=== PATIENT | male | born 1980 | race Caucasian/White ===

== ENCOUNTER 2017-03-29 00:44 | Emergency (ER) | payer OTHER ==
[~2017-03-29] VITALS: Ht 180.3 cm; Wt 90.7 kg
[2017-03-29] MEDS ORDERED: LACTATED RINGERS 1,000 ML IV ONE ×2 (00:55→01:56)
[2017-03-29] MEDS ORDERED: ONDANSETRON 4 MG/2 ML (SDV) Z0FRAN IVP ONE (01:00)
[2017-03-29 01:10] LABS: BASOPHILS # (AUTO) 0.1 10^3/uL (0.0-0.1); BASOPHILS % (AUTO) 0 % (0-10); EOSINOPHILS # (AUTO) 0.3 10^3/uL (0.0-0.3); EOSINOPHILS % (AUTO) 2 % (0-10); LYMPHOCYTES # (AUTO) 3.3 X 10^3 (1.0-4.0); LYMPHOCYTES % (AUTO) 25 % (12-44); MEAN CORPUSCULAR HEMOGLOBIN 32 PG (25-34); MEAN CORPUSCULAR HGB CONC 35 G/DL (32-36); MEAN CORPUSCULAR VOLUME 90 FL (80-99); MEAN PLATELET VOLUME 9.4 FL (7.4-10.4); MONOCYTES # (AUTO) 1.2 X 10^3 (0.0-1.0); MONOCYTES % (AUTO) 9 % (0-12); NEUTROPHILS # (AUTO) 8.6 X 10^3 (1.8-7.8); NEUTROPHILS % (AUTO) 64 % (42-75); PLATELET COUNT 310 10^3/uL (130-400); RED BLOOD COUNT 5.12 10^6/uL (4.35-5.85); WHITE BLOOD COUNT 13.5 10^3/uL (4.3-11.0)
--- NOTE | 2017-03-29 01:13 | ED General ---
General Chief Complaint: Exposure Stated Complaint: OVER HEATING Source of Information: Patient History of Present Illness Time Seen by Provider: 00:55 Initial Comments PT ARRIVES VIA POV FROM WORK AT [employer] PT STATES HE "GOT OVERHEATED" AT WORK TONIGHT SYMPTOMS BEGAN 1 1/2 HOURS AGO--STATES HE STARTED HAVING TINGLING IN HIS HANDS, HE STARTED GETTING NUMB ALL OVER, STARTED HAVING CRAMPING IN HIS HANDS AND HIS WHOLE BODY, AND STATES HE "COULD BARELY WALK OR BREATHE" PT STATES HE HAS BEEN "OVER HEATED A FEW TIMES, BUT NOT THIS BAD" " I GOT OVERHEATED PRETTY BAD LAST NIGHT" "GOT REALLY SCARED" C/O NAUSEA, NO VOMITING VOIDED JUST PRIOR TO ARRIVAL FELT FINE EARLIER THIS EVENING NO HEADACHE NO VISION CHANGES NO CHEST PAIN NO ABDOMINAL PAIN PT IS EXTREMELY ANXIOUS AND HYPERVENTILATING ON ARRIVAL, WITH CARPAL SPASMS OF NOTE, TEMP OUTSIDE IS ONLY 65 DEGREES AND HAS BEEN RAINING MOST OF DAY AND ALL NIGHT. NO PCP Allergies and Home Medications Allergies Coded Allergies: No Known Drug Allergies (Unverified , 03/29/17) Constitutional: see HPI, dizziness, weakness EENTM: no symptoms reported Respiratory: see HPI (HYPERVENTILATING) Cardiovascular: no symptoms reported, No chest pain, No syncope Gastrointestinal: see HPI, No abdominal pain, nausea Genitourinary: no symptoms reported Musculoskeletal: see HPI Skin: no symptoms reported Psychiatric/Neurological: See HPI, Anxiety, Denies Headache, Paresthesia Hematologic/Lymphatic: No Symptoms Reported Immunological/Allergic: no symptoms reported Past Frariur-Ckikvt-Vzblwt Hx Patient Social History Alcohol Use: Regular Use (3-4 BEERS OR MORE EVERY DAY) Recreational Drug Use: Yes (HX OF THC, METH, COCAINE, PAIN PILLS, OTHERS) Smoking Status: Current Everyday Smoker (1 08/14 PPD) Type Used: Cigarettes Recent Foreign Travel: No Contact w/Someone Who Travel: No Recent Hopitalizations: No Surgeries HX Surgeries: No Respiratory Hx Respiratory Disorders: No Cardiovascular Hx Cardiac Disorders: No Neurological Hx Neurological Disorders: No Reproductive System Hx Reproductive Disorders: No Genitourinary Hx Genitourinary Disorders: No Gastrointestinal Hx Gastrointestinal Disorders: No Musculoskeletal Hx Musculoskeletal Disorders: Yes Musculoskeletal Disorders: Chronic Back Pain Endocrine Hx Endocrine Disorders: No HEENT HX ENT Disorders: No Cancer Hx Cancer: No Psychosocial Hx Psychiatric Problems: No Integumentary HX Skin/Integumentary Disorder: No Blood Transfusions Hx Blood Disorders: No Physical Exam Vital Signs Vital Sign - Last 12Hours 03/29/17 00:50 Temp 96.2 Pulse 108 Resp 28 B/P (MAP) 157/101 Pulse Ox 100 O2 Delivery Room Air Capillary Refill : General Appearance: WD/WN, Anxious, Other (HYPERVENTILATING, HAVING CARPAL SPASMS ON ARRIVAL, THEN BREATHING SLOWED PT STARTED CRYING UNCONTROLLABLY-- STATING HE IS "AFRAID OF LOSING HIS JOB, BECAUSE HE CAME TO ER." ) HEENT: PERRL/EOMI Neck: Normal Inspection Respiratory: No Rales, No Rhonci, No Wheezing, Other (HYPERVENTILATING) Cardiovascular: Regular Rate, Rhythm, No Edema, No JVD, No Murmur, Normal Peripheral Pulses, Tachycardia Gastrointestinal: Normal Bowel Sounds, No Organomegaly, No Pulsatile Mass, Non Tender, Soft Back: Normal Inspection, No CVA Tenderness, No Vertebral Tenderness Extremity: Normal Capillary Refill, Normal Inspection, Normal Range of Motion, Non Tender, No Calf Tenderness, No Pedal Edema Neurologic/Psychiatric: Alert, Oriented x3, No Motor/Sensory 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, 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 Skin: Normal Color, Warm/Dry, No Damp, No Diaphoresis Progress/Results/Core Measures Results/Orders Lab Results Laboratory Tests Test 03/29/17 00:59 03/29/17 01:55 Range/Units White Blood Count 13.5 H 4.3-11.0 10^3/uL Red Blood Count 5.12 4.35-5.85 10^6/uL Hemoglobin 16.3 13.3-17.7 G/DL Hematocrit 46 40-54 % Mean Corpuscular Volume 90 80-99 FL Mean Corpuscular Hemoglobin 32 25-34 PG Mean Corpuscular Hemoglobin Concent 35 32-36 G/DL Red Cell Distribution Width 13.0 10.0-14.5 % Platelet Count 310 130-400 10^3/uL Mean Platelet Volume 9.4 7.4-10.4 FL Neutrophils (%) (Auto) 64 42-75 % Lymphocytes (%) (Auto) 25 12-44 % Monocytes (%) (Auto) 9 0-12 % Eosinophils (%) (Auto) 2 0-10 % Basophils (%) (Auto) 0 0-10 % Neutrophils # (Auto) 8.6 H 1.8-7.8 X 10^3 Lymphocytes # (Auto) 3.3 1.0-4.0 X 10^3 Monocytes # (Auto) 1.2 H 0.0-1.0 X 10^3 Eosinophils # (Auto) 0.3 0.0-0.3 10^3/uL Basophils # (Auto) 0.1 0.0-0.1 10^3/uL Sodium Level 134 L 135-145 MMOL/L Potassium Level 3.2 L 3.6-5.0 MMOL/L Chloride Level 103 98-107 MMOL/L Carbon Dioxide Level 15 L 21-32 MMOL/L Anion Gap 16 H 5-14 MMOL/L Blood Urea Nitrogen 23 H 7-18 MG/DL Creatinine 0.88 0.60-1.30 MG/DL Estimat Glomerular Filtration Rate > 60 BUN/Creatinine Ratio 26 Glucose Level 141 H 70-105 MG/DL Calcium Level 10.4 H 8.5-10.1 MG/DL Magnesium Level 1.8 1.8-2.4 MG/DL Total Bilirubin 0.7 0.1-1.0 MG/DL Aspartate Amino Transf (AST/SGOT) 28 5-34 U/L Alanine Aminotransferase (ALT/SGPT) 33 0-55 U/L Alkaline Phosphatase 66 40-136 U/L Total Protein 7.3 6.4-8.2 GM/DL Albumin 4.5 3.2-4.5 GM/DL TSH Gillespie Testing 1.60 0.35-4.94 UIU/ML Serum Alcohol < 10 <10 MG/DL Urine Color YELLOW Urine Clarity CLEAR Urine pH 5 5-9 Urine Specific [place] 1.020 1.016-1.022 Urine Protein NEGATIVE NEGATIVE Urine Glucose (UA) NEGATIVE NEGATIVE Urine Ketones 2+ H NEGATIVE Urine Nitrite NEGATIVE NEGATIVE Urine Bilirubin NEGATIVE NEGATIVE Urine Urobilinogen NORMAL NORMAL MG/DL Urine Leukocyte Esterase NEGATIVE NEGATIVE Urine RBC (Auto) NEGATIVE NEGATIVE Urine RBC NONE /HPF Urine WBC NONE /HPF Urine Squamous Epithelial Cells RARE /HPF Urine Crystals NONE /LPF Urine Bacteria NEGATIVE /HPF Urine Casts NONE /LPF Urine Mucus SMALL H /LPF Urine Culture Indicated NO Urine Opiates Screen NEGATIVE NEGATIVE Urine Oxycodone Screen NEGATIVE NEGATIVE Urine Methadone Screen NEGATIVE NEGATIVE Urine Propoxyphene Screen NEGATIVE NEGATIVE Urine Barbiturates Screen NEGATIVE NEGATIVE Ur Tricyclic Antidepressants Screen NEGATIVE NEGATIVE Urine Phencyclidine Screen NEGATIVE NEGATIVE Urine Amphetamines Screen POSITIVE H NEGATIVE Urine Methamphetamines Screen POSITIVE H NEGATIVE Urine Benzodiazepines Screen NEGATIVE NEGATIVE Urine Cocaine Screen NEGATIVE NEGATIVE Urine Cannabinoids Screen NEGATIVE NEGATIVE My Orders Orders - LUDIN COTA DO Saline Lock/Iv-Start (03/29/17 00:55) Monitor-Rhythm Ecg Trace Only (03/29/17 00:55) Alcohol (03/29/17 00:55) Cbc With Automated Diff (03/29/17 00:55) Comprehensive Metabolic Panel (03/29/17 00:55) Drug Screen Stat (Urine) (03/29/17 00:55) Magnesium (03/29/17 00:55) Thyroid Analyzer (03/29/17 00:55) Ua Culture If Indicated (03/29/17 00:55) Saline Lock/Iv-Start (03/29/17 00:55) Ondansetron Injection (Zofran Injectio (03/29/17 01:00) Saline Lock/Iv-Start (03/29/17 00:55) Lactated Ringers (Lr 1000 Ml Iv Solution (03/29/17 00:55) Saline Lock/Iv-Start (03/29/17 01:56) Lactated Ringers (Lr 1000 Ml Iv Solution (03/29/17 01:56) Potassium Chloride (Tablet) (Klor Con Ta (03/29/17 02:00) Medications Given in ED Current Medications Medications Dose Ordered Sig/Maude Route Start Time Stop Time Status Last Admin Dose Admin Lactated Ringer's 1,000 ml @ 0 mls/hr Q0M ONCE IV 03/29/17 00:55 03/29/17 01:04 DC 03/29/17 01:11 1,000 MLS/HR Ondansetron HCl 4 mg ONCE ONCE IVP 03/29/17 01:00 03/29/17 01:04 DC 03/29/17 01:10 4 MG Potassium Chloride 20 meq ONCE ONCE PO 03/29/17 02:00 03/29/17 02:01 UNV 03/29/17 02:08 20 MEQ Vital Signs/I&O Vital Sign - Last 12Hours 03/29/17 03/29/17 00:50 02:10 Temp 96.2 Pulse 108 102 Resp 28 20 B/P (MAP) 157/101 Pulse Ox 100 98 O2 Delivery Room Air Room Air Progress Note : Progress Note PLACED ON NRB MASK WITHOUT O2, AND PT ENCOURAGED TO SLOW DOWN BREATHING--O2 SATS 100% GIVEN A LITER OF FLUIDS AND PT VOIDED 500 ML URINE--STATES HE "FEELS GREAT" AND WANTS TO GO HOME, PT SMILING AND AMBULATES WITHOUT DIFFICULTY OFFERED ANOTHER BAG OF IV FLUIDS AND PT DECLINES. 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 Departure Impression Impression: Primary Impression: Mild dehydration Additional Impressions: Heat exhaustion ANXIETY WITH HYPERVENTILATION Electrolyte imbalance Illicit drug use Disposition: HOME, SELF-CARE Condition: Improved Departure-Patient Inst. Referrals: NO,LOCAL PHYSICIAN (PCP) Primary Care Physician Patient Instructions: Anxiety, Adult (DC), Dehydration, Adult (DC), Heat Exhaustion and Heat Stroke (DC), Hyperventilation Add. Discharge Instructions: LOTS OF FLUIDS--DRINK EQUAL AMOUNTS OF WATER AND GATORADE--DRINK ENOUGH SO YOU ARE URINATING EVERY 2 HOURS WHILE AWAKE FOLLOW UP WITH OF CHOICE TOMORROW IF NO BETTER All discharge instructions reviewed with patient and/or family. Voiced understanding. LUDIN COTA DO Mar 29, 2017 01:13
[2017-03-29 01:35] LABS: ALANINE AMINOTRANSFERASE 33 U/L (0-55); ALBUMIN 4.5 GM/DL (3.2-4.5); ALCOHOL < 10 MG/DL (<10); ANION GAP 16 MMOL/L (5-14); ASPARTATE AMINO TRANSFERASE 28 U/L (5-34); BILIRUBIN,TOTAL 0.7 MG/DL (0.1-1.0); BLOOD UREA NITROGEN 23 MG/DL (7-18); BUN/CREATININE RATIO 26; CALCIUM 10.4 MG/DL (8.5-10.1); CARBON DIOXIDE 15 MMOL/L (21-32); CHLORIDE 103 MMOL/L (98-107); CREATININE SERUM 0.88 MG/DL (0.60-1.30); GFR ESTIMATED > 60; GLUCOSE 141 MG/DL (70-105); MAGNESIUM 1.8 MG/DL (1.8-2.4); POTASSIUM 3.2 MMOL/L (3.6-5.0); SODIUM 134 MMOL/L (135-145); TOTAL PROTEIN 7.3 GM/DL (6.4-8.2)
[2017-03-29] MEDS ORDERED: KCL 10 MEQ TAB (MICRO K) PO ONE ×2 (02:00→02:01)
[2017-03-29 02:06] LABS: BILIRUBIN,URINE NEGATIVE (NEGATIVE); KETONES,URINE 2+ (NEGATIVE); LEUKOCYTE ESTERASE ,URINE NEGATIVE (NEGATIVE); NITRITE,URINE NEGATIVE (NEGATIVE); PH,URINE 5 (5-9); PROTEIN,URINE NEGATIVE (NEGATIVE); UROBILINOGEN,URINE NORMAL (NORMAL)
[2017-03-29 02:10] VITALS: BP 132/86
[2017-03-29 02:12] LABS: SQUAMOUS EPITHELIAL CELL,UR RARE /HPF
== END 2017-03-29 02:10 | disposition home or self-care (01) ==
LOC: EDUNIT# 00:44 → ER 00:47
DX: T67.5XXA Heat exhaustion, unspecified, initial encounter (principal); F41.9 Anxiety disorder, unspecified; E86.0 Dehydration; E87.8 Other disorders of electrolyte and fluid balance, not elsewhere classified; F19.10 Other psychoactive substance abuse, uncomplicated; F17.210 Nicotine dependence, cigarettes, uncomplicated; X30.XXXA Exposure to excessive natural heat, initial encounter
CPT/HCPCS: 36415; 80053; 80306; 80320; 81000; 83735; 84443; 85025; 96361; 96374

== ENCOUNTER 2017-06-24 06:21 | Emergency (ER) | payer SELFPAY ==
[~2017-06-24] VITALS: Ht 180.3 cm; Wt 90.7 kg
--- NOTE | 2017-06-24 07:52 | ED Lower Extremity ---
General Chief Complaint: Lower Extremity Stated Complaint: FOOT PAIN Nursing Triage Note: PT TO ED 6 W/ C/O LT FOOT PAIN ONSET X2DAYS, WORSE THIS AM. PT REPORTS HE'S UNABLE TO SLEEP DUE TO PAIN. DENIES INJURY Nursing Sepsis Screen: No Definite Risk Source: patient Exam Limitations: no limitations History of Present Illness Time seen by provider: 07:48 Initial Comments The patient is a 36-year-old white male who presents today with the chief complaint of left foot pain. He denies any injury to this foot. States this began Sunday evening. He has no previous history of gout or other arthropathies. He stated when he attempted to get out of bed on Sunday morning he could scarcely bear weight. He went on to work and had a miserable day. He was largely unable to sleep last night. Severity: moderate Pain/Injury Location: left foot Method of Injury: unknown Allergies and Home Medications Allergies Coded Allergies: No Known Drug Allergies (Unverified , 03/29/17) Home Medications No Active Prescriptions or Reported Meds Constitutional: see HPI EENTM: no symptoms reported Respiratory: no symptoms reported Cardiovascular: no symptoms reported Gastrointestinal: no symptoms reported Genitourinary: no symptoms reported Musculoskeletal: joint pain Skin: other (redness left foot) Psychiatric/Neurological: No Symptoms Reported Past Toxsadp-Ytqbwy-Umbwyv Hx Patient Social History Alcohol Use: Occasionally Uses Number of Drinks Today: AA Alcohol Beverage of Choice: Beer Recreational Drug Use: No Smoking Status: Current Everyday Smoker Type Used: Cigarettes Recent Foreign Travel: No Contact w/Someone Who Travel: No Recent Infectious Disease Expo: No Recent Hopitalizations: No Physical Abuse: No Sexual Abuse: No Mistreated: No Fear: No Surgeries History of Surgeries: No Respiratory History of Respiratory Disorde: No Cardiovascular History of Cardiac Disorders: No Neurological History of Neurological Disord: No Reproductive System Hx Reproductive Disorders: No Genitourinary History of Genitourinary Disor: No Gastrointestinal History of Gastrointestinal Di: No Musculoskeletal History of Musculoskeletal Dis: No Musculoskeletal Disorders: Chronic Back Pain Endocrine History of Endocrine Disorders: No HEENT History of HEENT Disorders: No Cancer History of Cancer: No Psychosocial History of Psychiatric Problem: No Suicide Risk Score: 0 Integumentary History of Skin or Integumenta: No Blood Transfusions History of Blood Disorders: No Physical Exam Vital Signs Vital Sign - Last 12Hours 06/24/17 06:27 Temp 95.7 Pulse 115 Resp 24 B/P (MAP) 131/89 Pulse Ox 99 O2 Delivery Room Air Capillary Refill : Less Than 3 Seconds General Appearance: mild distress HEENT: normal ENT inspection Neck: full range of motion Cardiovascular: normal peripheral pulses, regular rate, rhythm, no edema, no gallop, no JVD, no murmur Respiratory: chest non-tender, lungs clear, normal breath sounds, no respiratory distress, no accessory muscle use Gastrointestinal: normal bowel sounds, non tender, soft, no organomegaly, no pulsatile mass Comments The left foot shows no evidence of deformity or ecchymosis. The dorsum of the foot is a blotchy red. The foot is tender to light touch. Pulses are intact. Capillary refill is normal. Progress/Results/Core Measures Results/Orders Lab Results Laboratory Tests Test 06/24/17 08:05 Range/Units White Blood Count 11.0 4.3-11.0 10^3/uL Red Blood Count 4.52 4.35-5.85 10^6/uL Hemoglobin 14.4 13.3-17.7 G/DL Hematocrit 41 40-54 % Mean Corpuscular Volume 91 80-99 FL Mean Corpuscular Hemoglobin 32 25-34 PG Mean Corpuscular Hemoglobin Concent 35 32-36 G/DL Red Cell Distribution Width 12.6 10.0-14.5 % Platelet Count 315 130-400 10^3/uL Mean Platelet Volume 9.2 7.4-10.4 FL Neutrophils (%) (Auto) 67 42-75 % Lymphocytes (%) (Auto) 19 12-44 % Monocytes (%) (Auto) 9 0-12 % Eosinophils (%) (Auto) 4 0-10 % Basophils (%) (Auto) 1 0-10 % Neutrophils # (Auto) 7.4 1.8-7.8 X 10^3 Lymphocytes # (Auto) 2.1 1.0-4.0 X 10^3 Monocytes # (Auto) 1.0 0.0-1.0 X 10^3 Eosinophils # (Auto) 0.5 H 0.0-0.3 10^3/uL Basophils # (Auto) 0.1 0.0-0.1 10^3/uL Sodium Level 139 135-145 MMOL/L Potassium Level 4.2 3.6-5.0 MMOL/L Chloride Level 105 98-107 MMOL/L Carbon Dioxide Level 25 21-32 MMOL/L Anion Gap 9 5-14 MMOL/L Blood Urea Nitrogen 14 7-18 MG/DL Creatinine 0.84 0.60-1.30 MG/DL Estimat Glomerular Filtration Rate > 60 BUN/Creatinine Ratio 17 Glucose Level 111 H 70-105 MG/DL Uric Acid 6.1 2.6-7.2 MG/DL Calcium Level 9.0 8.5-10.1 MG/DL Total Bilirubin 0.2 0.1-1.0 MG/DL Aspartate Amino Transf (AST/SGOT) 20 5-34 U/L Alanine Aminotransferase (ALT/SGPT) 23 0-55 U/L Alkaline Phosphatase 67 40-136 U/L Total Protein 6.3 L 6.4-8.2 GM/DL Albumin 3.9 3.2-4.5 GM/DL My Orders Orders - JAH BATES MD Foot, Left, 3 Views (06/24/17 06:56) Cbc With Automated Diff (06/24/17 07:52) Comprehensive Metabolic Panel (06/24/17 07:52) Uric Acid (06/24/17 07:52) Vital Signs/I&O Vital Sign - Last 12Hours 06/24/17 06:27 Temp 95.7 Pulse 115 Resp 24 B/P (MAP) 131/89 Pulse Ox 99 O2 Delivery Room Air Blood Pressure Mean: 103 Departure Communication (Admissions) Progress Notes WBC Is slightly elevated. The left small toe is swollen red and shiny. There is a questionable erythematous streak up the anterior cheatham about 20 cm above the malleolus. Uric acid is negative. X-ray is negative. Impression Impression: Primary Impression: cellulitis left foot Disposition: HOME, SELF-CARE Condition: Stable/Unchanged Departure-Patient Inst. Decision time for Depature: 08:46 Referrals: NO,LOCAL PHYSICIAN (PCP) Primary Care Physician Add. Discharge Instructions: All discharge instructions reviewed with patient and/or family. Voiced understanding. Elevate your foot and leave the shoe off as much as possible today. No work tonight In the a.m. begin oral antibiotics It will take about 48 hours for the antibiotics to show effect. However if redness and streaking increasing rapidly returned to the emergency room Scripts Cefdinir (Cefdinir) 300 Mg Capsule 300 MG PO twice a day, #14 CAP Prov: JAH BATES MD 06/24/17 JAH BATES MD Jun 24, 2017 07:52
[2017-06-24 08:12] LABS: BASOPHILS # (AUTO) 0.1 10^3/uL (0.0-0.1); BASOPHILS % (AUTO) 1 % (0-10); EOSINOPHILS # (AUTO) 0.5 10^3/uL (0.0-0.3); EOSINOPHILS % (AUTO) 4 % (0-10); LYMPHOCYTES # (AUTO) 2.1 X 10^3 (1.0-4.0); LYMPHOCYTES % (AUTO) 19 % (12-44); MEAN CORPUSCULAR HEMOGLOBIN 32 PG (25-34); MEAN CORPUSCULAR HGB CONC 35 G/DL (32-36); MEAN CORPUSCULAR VOLUME 91 FL (80-99); MEAN PLATELET VOLUME 9.2 FL (7.4-10.4); MONOCYTES % (AUTO) 9 % (0-12); NEUTROPHILS # (AUTO) 7.4 X 10^3 (1.8-7.8); NEUTROPHILS % (AUTO) 67 % (42-75); PLATELET COUNT 315 10^3/uL (130-400); RED BLOOD COUNT 4.52 10^6/uL (4.35-5.85); RED CELL DISTRIBUTION WIDTH 12.6 % (10.0-14.5)
[2017-06-24 08:30] LABS: ALANINE AMINOTRANSFERASE 23 U/L (0-55); ALBUMIN 3.9 GM/DL (3.2-4.5); ANION GAP 9 MMOL/L (5-14); ASPARTATE AMINO TRANSFERASE 20 U/L (5-34); BILIRUBIN,TOTAL 0.2 MG/DL (0.1-1.0); BLOOD UREA NITROGEN 14 MG/DL (7-18); BUN/CREATININE RATIO 17; CARBON DIOXIDE 25 MMOL/L (21-32); CHLORIDE 105 MMOL/L (98-107); CREATININE SERUM 0.84 MG/DL (0.60-1.30); GFR ESTIMATED > 60; GLUCOSE 111 MG/DL (70-105); POTASSIUM 4.2 MMOL/L (3.6-5.0); SODIUM 139 MMOL/L (135-145); TOTAL PROTEIN 6.3 GM/DL (6.4-8.2); URIC ACID 6.1 MG/DL (2.6-7.2)
[2017-06-24] MEDS ORDERED: CEFD300C3 PO (08:48)
[2017-06-24] MEDS ORDERED: cefTRIAXone 1 GM (ROCEPHIN) VIAL IM ONE (09:15)
[2017-06-24] MEDS ORDERED: LIDOCAINE 1% INJ 20 ML (XYLOCAINE) VIAL INJ ONE (09:15)
--- NOTE | 2017-06-24 09:42 | Diagnostic Imaging Report ---
Clinical indication: Patient complains of left foot pain x3 days. Patient unable to sleep. No known injury. Exam: X-ray of the left foot, 3 views. Comparison: None. Findings: There is no acute fracture or dislocation. There is minimal spurring of the dorsal first MTP joint region. The remainder of the left foot unremarkable. Impression: 1: Minimal degenerative spurring of the dorsal first MTP region. Otherwise unremarkable x-ray of the left foot. Dictated by: Dictated on workstation # [id number]
[2017-06-24 10:12] VITALS: BP 120/76
== END 2017-06-24 10:12 | disposition home or self-care (01) ==
LOC: EDUNIT# 06:21 → ER 06:23
DX: L03.116 Cellulitis of left lower limb (principal); F17.210 Nicotine dependence, cigarettes, uncomplicated
CPT/HCPCS: 36415; 73630; 80053; 84550; 85025; 99284

== ENCOUNTER 2022-11-25 08:09 | Emergency (ER) | payer BC ==
[~2022-11-25] VITALS: Ht 182 cm; Wt 92.0 kg
[~2022-11-25 08:09] MED LIST: CEFD300C3 PO
--- NOTE | 2022-11-25 08:20 | ED Upper Extremity ---
General Chief Complaint: Upper Extremity Stated Complaint: LEFT INDEX FINGER INJ Source: patient Exam Limitations: no limitations History of Present Illness Date Seen by Provider: Nov 25, 2022 Time Seen by Provider: 08:20 Initial Comments Patient is a 41-year-old right-handed male who presents to the emergency room with a chief complaint of left index finger pain after smashing his finger with a hammer. Injury occurred approximately 2 hours prior to arrival. Unknown last tetanus shot. No allergies to medications. Does not take any daily medications, does not see a doctor. 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) Severity: mild Pain/Injury Location: left 2nd finger Method of Injury: direct blow Modifying Factors: Worse With Movement Allergies and Home Medications Allergies Coded Allergies: No Known Drug Allergies (Unverified , 03/29/17) Patient Home Medication List Home Medication List Reviewed: Yes Cefdinir (Cefdinir) 300 Mg Capsule, 300 MG PO twice a day Prescribed by: JAH BATES on 06/24/17 0848 Review of Systems Constitutional: see HPI Musculoskeletal: joint pain (tip of left index finger pain) Skin: other (wound/crush injury) All Other Systems Reviewed Negative Unless Noted: Yes Past Owefqrd-Mjkxfv-Thwkfr Hx Immunizations Up To Date Tetanus Booster (TDap): Unknown Seasonal Allergies Seasonal Allergies: No Past Medical History Surgeries: No Respiratory: No Cardiac: No Neurological: No Reproductive Disorders: No Genitourinary: No Gastrointestinal: No Musculoskeletal: No Chronic Back Pain Endocrine: No HEENT: No Cancer: No Psychosocial: No Integumentary: No Blood Disorders: No Physical Exam Vital Signs Vital Signs - First Documented 11/25/22 08:20 Temp 36.4 Pulse 114 Resp 16 B/P (MAP) 136/92 (107) Pulse Ox 97 Capillary Refill : Height, Weight, BMI Height: 5'11.00" Weight: 200lbs. oz. 90.357093kw; 183.00 BMI Method:Stated General Appearance: WD/WN, mild distress Respiratory: no respiratory distress, no accessory muscle use Shoulder: normal inspection, normal ROM Elbow/Forearm: normal inspection, normal ROM, Left Wrist: Yes normal inspection, Yes normal ROM Hand: Left (index finger tip), nail injury, soft tissue tenderness Neurologic/Psychiatric: alert, normal mood/affect, oriented x 3 Procedures/Interventions Wound Location: Upper Extremities Other Wound Location right index finger Wound Length (cm): 2 Wound's Depth, Shape: linear, nail-avulsed, contused tissue Wound Explored: clean Irrigated w/ Saline (ccs): 250 Anesthesia: 1% Lidocaine Volume Anesthetic (ccs): 5 Wound Debrided: minimal (removed distal finger nail) Suture: Chromic (5-0 x3), Prolene (5-0 x2) Number of Sutures: 5 Layer Closure?: 1 Progress Nail bed margins approximated with 5-0 chromic gut x3 sutures. followed by prolene 5-0 x2 sutures in the skin of the distal tip of the finger. hemostasis. good closure. Progress/Results/Core Measures Results/Orders Lab Results Laboratory Tests Test 11/25/22 08:28 Range/Units Glucometer 119 H 70-110 MG/DL My Orders Orders - CADEN SENA MD Finger(S) (11/25/22 08:17) Dipht,Pertuss(Acell),Tet Adult (Boostrix (11/25/22 08:30) Accucheck Stat ONCE (11/25/22 08:25) Lidocaine 1% Inj 20 Ml (Xylocaine 1% Inj (11/25/22 08:30) Lidocaine 1% Inj 20 Ml (Xylocaine 1% Inj (11/25/22 08:24) Medications Given in ED Current Medications Medications Dose Ordered Sig/Maude Route Start Time Stop Time Status Last Admin Dose Admin Diphtheria/ Tetanus/Acell Pertussis 0.5 ml ONCE ONCE IM 11/25/22 08:30 11/25/22 08:31 DC 11/25/22 09:48 0.5 ML Lidocaine HCl 20 ml ONCE ONCE INJ 11/25/22 08:30 11/25/22 08:31 DC 11/25/22 09:50 20 ML Vital Signs/I&O 11/25/22 08:20 Temp 36.4 Pulse 114 Resp 16 B/P (MAP) 136/92 (107) Pulse Ox 97 Progress Progress Note : Time: 08:29 Progress Note bedside accu check 119 Diagnostic Imaging Diagonstic Imaging: Xray Comments [facility], [place] NAME: ANATANNER Melyssa MED REC#: [id number] PT STATUS: REG ER : 1980 PHYSICIAN: CADEN SENA MD ADMIT DATE: 11/25/22/ER Draft Date of Exam:11/25/22 FINGER(S) CLINICAL INDICATIONS: Patient smashed left index finger with hammer. EXAM: X-ray of the left 1st finger, 4 views. COMPARISON: None. FINDINGS AND IMPRESSION: 1: There is a nondisplaced fracture of the distal 2nd phalangeal tuft. There is associated soft tissue injury and deformity seen in the region. 2: There is no other fracture seen on this exam. Dictated on workstation # [id number] Dict: 11/25/22 0839 Trans: 11/25/22 0842 [facility] [id number] Interpreted by: YANIRA HOLDEN MD Electronically signed by: Departure Impression Primary Impression: Fracture of phalanx of hand Qualified Codes: S62.609B - Fracture of unspecified phalanx of unspecified finger, initial encounter for open fracture Disposition: HOME, SELF-CARE Condition: Stable Departure-Patient Inst. Decision time for Depature: 10:14 Referrals: NO,LOCAL PHYSICIAN (PCP) Primary Care Physician [facility] Patient Instructions: Finger Fracture ED Add. Discharge Instructions: You have a fracture/break of the very distal tip of your right pointer finger. This is called an "open fracture" because of the wound over the top. You will need to take antibiotics for 10 days. Dicloxacillin 500 mg 4 times a day for the entire 10 days. Please finish the entire prescription. Keep the dressing on that we have placed today until Sunday. Return to the emergency room on Sunday so that we can evaluate the wound. After Sunday you can start washing the wound with a mild soap and water twice a day. Neosporin on the top where the nail should be. Twice a day for 2 to 3 days. Covered by a dry dressing. Wear the splint to cover the top of the finger and prevent reinjury. It will take 3 to 4 weeks for the bone to start to heal, so even after the stitches are removed you may still need to wear the finger splint to protect the top of the finger. Hydrocodone 5 mg tablets 1 every 6 hours as needed for pain. You can also take [id number] ibuprofen, 3 tablets which is 600 mg every 6 hours with food as needed for pain. Keep it elevated to help with pain and prevent swelling. The stitches in the tip of your finger will need to be removed in 12 to 14 days. Scripts Hydrocodone/Acetaminophen (Hydrocodone-Acetamin 5-325 mg) 5 Mg-325 Mg Tablet 1 TAB PO Q6H PRN for PAIN-MODERATE (5-7), #15 TAB Prov: CADEN SENA MD 11/25/22 Dicloxacillin Sodium (Dicloxacillin Sodium) 500 Mg Capsule 500 MG PO QID for 10 Days, #40 CAP Prov: CADEN SENA MD 11/25/22 CADEN SENA MD Nov 25, 2022 08:20
[2022-11-25] MEDS ORDERED: LIDOCAINE 1% INJ 20 ML VIAL ONE (08:24)
[2022-11-25] MEDS ORDERED: LIDOCAINE 1% INJ 20 ML VIAL INJ ONE (08:30)
[2022-11-25] MEDS ORDERED: TETANUS,DIPTH,PERTUSS P/F (BOOSTRIX) 0.5 ML VIAL IM ONE (08:30)
[2022-11-25] MEDS ORDERED: LIDOCAINE 1% INJ 10 ML VIAL INJ ONE (08:30)
--- NOTE | 2022-11-25 08:43 | Diagnostic Imaging Report ---
CLINICAL INDICATIONS: Patient smashed left index finger with hammer. EXAM: X-ray of the left 1st finger, 4 views. COMPARISON: None. FINDINGS AND IMPRESSION: 1: There is a nondisplaced fracture of the distal 2nd phalangeal tuft. There is associated soft tissue injury and deformity seen in the region. 2: There is no other fracture seen on this exam. Dictated by: Dictated on workstation # [id number]
[2022-11-25] MEDS ORDERED: ACHD5005 PO (10:18)
[2022-11-25] MEDS ORDERED: DICL500C PO (10:18)
[2022-11-25 10:40] VITALS: BP 129/87
== END 2022-11-25 10:40 | disposition home or self-care (01) ==
LOC: EDUNIT# 08:09 → ER 08:11
DX: S62.661A Nondisplaced fracture of distal phalanx of left index finger, initial encounter for closed fracture (principal); Z23 Encounter for immunization; W23.0XXA Caught, crushed, jammed, or pinched between moving objects, initial encounter
CPT/HCPCS: 12002; 29130; 73140; 82947; 99284; A6223; 90715